=== PATIENT | female | born 1935 | race Caucasian/White ===

== ENCOUNTER 2017-04-30 09:50 | Inpatient (IN) | payer OTHER, BC ==
[~2017-04-30] VITALS: Ht 160 cm; Wt 53.3 kg
[2017-04-30 11:08] LABS: HEMATOCRIT 35.4 % (36.0-46.0); MCH 30.9 PG (29.0-34.0); MCHC 33.6 G/DL (30.0-36.0); MCV 91.9 FL (83-99); MEAN PLAT.VOLUME 9.4 uM^3 (9.5-12.4); PLATELET COUNT 338 K/uL (156-360); RBC DIS.WIDTH-CV 13.1 % (11.8-14.6); RBC DIS.WIDTH-SD 44.1 % (39-53); RED BLOOD COUNT 3.85 M/uL (3.80-5.20); WHITE BLOOD COUNT 6.1 K/uL (4.1-10.2)
[2017-04-30 11:14] LABS: PROTHROMBIN TIME 10.9 SEC (10.2-12.9)
[2017-04-30 11:18] LABS: CHLORIDE 102 mEq/L (99-109); POTASSIUM 4.4 mEq/L (3.7-5.4); SODIUM 141 mEq/L (136-147)
[2017-04-30 11:20] LABS: GLUCOSE 109 mg/dL (70-99)
[2017-04-30 11:21] LABS: ANION GAP 13 MEQ/L (2-14)
[2017-04-30 11:22] LABS: TOTAL BILIRUBIN 0.6 mg/dL (0.0-1.0)
[2017-04-30 11:23] LABS: ALKALINE PHOSPHATASE 82 IU/L (3-129)
[2017-04-30 11:24] LABS: GFR ESTIMATE (CALCULATED) > 59 mL/min/
[2017-04-30 11:25] LABS: PTT 32.8 SEC (25-37); UREA NITROGEN (BUN) 20 mg/dL (9-23)
[2017-04-30] MEDS ORDERED: MELOXICAM15 MG PO (17:21)
[2017-04-30] MEDS ORDERED: ZOLPIDEM TARTRA10 MG PO (17:22)
[2017-04-30] MEDS ORDERED: ESOMEPRAZOLE MA40 MG PO (17:23)
[2017-04-30] MEDS ORDERED: RESTASIS MULTI5.5 ML BOTH EYES (17:24)
[2017-04-30] MEDS ORDERED: HYDROXYCHLOROQ200 MG PO (17:25)
[2017-04-30] MEDS ORDERED: VALSARTAN-HCTZ1 EAC1 PO (17:26)
[2017-04-30] MEDS ORDERED: KETOCONAZOLE60 GM TP (17:26)
[2017-04-30] MEDS ORDERED: LO-DOSE ASPIRIN81 M2 PO (17:29)
[2017-04-30] MEDS ORDERED: OMEGA 3-6-9 11200 MG PO (17:31)
[2017-04-30] MEDS ORDERED: VITAMIN D-32000 UNI2 PO (17:32)
[2017-04-30] MEDS ORDERED: CENTRUM SILVER1 EAC4 PO (17:33)
[2017-04-30 21:25] VITALS: BP 147/70
[2017-04-30 23:48] VITALS: BP 149/66
[2017-05-01 03:47] VITALS: BP 120/57
[2017-05-01 06:22] LABS: HEMATOCRIT 33.5 % (36.0-46.0); MCH 31.5 PG (29.0-34.0); MCHC 33.7 G/DL (30.0-36.0); MCV 93.3 FL (83-99); MEAN PLAT.VOLUME 9.9 uM^3 (9.5-12.4); PLATELET COUNT 310 K/uL (156-360); RBC DIS.WIDTH-CV 13.3 % (11.8-14.6); RBC DIS.WIDTH-SD 45.6 % (39-53); RED BLOOD COUNT 3.59 M/uL (3.80-5.20); WHITE BLOOD COUNT 5.5 K/uL (4.1-10.2)
[2017-05-01 06:49] LABS: ANION GAP 9 MEQ/L (2-14); CHLORIDE 105 MEQ/L (99-109); GFR ESTIMATE (CALCULATED) > 59 mL/min/; GLUCOSE 105 mg/dL (70-99); SAMPLE HEMOLYSIS CHECK 0; SAMPLE ICTERIC CHECK 0; SAMPLE LIPEMIA CHECK 0; SODIUM 141 MEQ/L (136-147); UREA NITROGEN (BUN) 15 mg/dL (9-23)
[2017-05-01 08:25] VITALS: BP 141/65
[2017-05-01 12:25] VITALS: BP 142/62
[2017-05-01] MEDS ORDERED: LEVAQUIN750 MG PO (17:31)
== END 2017-05-01 17:57 | disposition home or self-care (01) | DRG 841 ==
LOC: EME 09:50 → EDOF 18:13 → ENRESERV 18:18 → 2EAST 21:17
PROVIDERS: Emergency Medicine; Hospitalist
DX: C85.91 Non-Hodgkin lymphoma, unspecified, lymph nodes of head, face, and neck (principal); J02.9 Acute pharyngitis, unspecified; R04.2 Hemoptysis; R13.10 Dysphagia, unspecified; I10 Essential (primary) hypertension; H61.23 Impacted cerumen, bilateral; K44.9 Diaphragmatic hernia without obstruction or gangrene; M19.90 Unspecified osteoarthritis, unspecified site; Z98.1 Arthrodesis status; Z79.82 Long term (current) use of aspirin
CPT/HCPCS: 70491; 71260; 80048; 80053; 85027; 85610; 85730; 99281; 99285; J1644; J7030

== ENCOUNTER → 2017-07-16 | Outpatient (CLI) | payer OTHER, BC ==
[~2017-07-16] MED LIST: AUGMENTIN500 MG PO; CENTRUM SILVER1 EAC4 PO; ESOMEPRAZOLE MA40 MG PO; HYDROXYCHLOROQ200 MG PO; KETOCONAZOLE60 GM TP; LEVAQUIN750 MG PO; LO-DOSE ASPIRIN81 M2 PO; MELOXICAM15 MG PO; OMEGA 3-6-9 11200 MG PO; RESTASIS MULTI5.5 ML BOTH EYES; VALSARTAN-HCTZ1 EAC1 PO; VITAMIN D-32000 UNI2 PO; ZOLPIDEM TARTRA10 MG PO
[2017-07-16 08:20] LABS: HEMATOCRIT 36.3 % (36.0-46.0); MCH 30.4 PG (29.0-34.0); MCHC 32.5 G/DL (30.0-36.0); MCV 93.6 FL (83-99); MEAN PLAT.VOLUME 9.2 uM^3 (9.5-12.4); PLATELET COUNT 340 K/uL (156-360); RBC DIS.WIDTH-CV 13.8 % (11.8-14.6); RBC DIS.WIDTH-SD 47.2 % (39-53); RED BLOOD COUNT 3.88 M/uL (3.80-5.20); WHITE BLOOD COUNT 5.3 K/uL (4.1-10.2)
[2017-07-16 08:26] LABS: PROTHROMBIN TIME 11.4 SEC (10.2-12.9)
[2017-07-16 08:29] LABS: PTT 33.5 SEC (25-37)
== END | disposition home or self-care (01) ==
LOC: OPR 07:52 → EDSTATUS 08:00 → OPR 08:00
PROVIDERS: Internal Medicine Hematology & Oncology
PROC: 07B13ZX Excision of Right Neck Lymphatic, Percutaneous Approach, Diagnostic (ICD-10-PCS; principal; 2017-07-16)
DX: C91.10 Chronic lymphocytic leukemia of B-cell type not having achieved remission (principal); R59.0 Localized enlarged lymph nodes
CPT/HCPCS: 77012; 85027; 85610; 85730; 85999; 88184 90; 88185 90; 88305

== ENCOUNTER 2017-08-25 12:47 | Day surgery (SDC) | payer OTHER, BC ==
[~2017-08-25] VITALS: Ht 160 cm; Wt 54.4 kg
[2017-08-25 13:18] VITALS: BP 137/74
[2017-08-25 13:43] LABS: ANION GAP 7 MEQ/L (2-14); CHLORIDE 101 MEQ/L (99-109); GFR ESTIMATE (CALCULATED) > 59 mL/min/; GLUCOSE 103 mg/dL (70-99); POTASSIUM 4.1 MEQ/L (3.7-5.4); SAMPLE HEMOLYSIS CHECK 0; SAMPLE ICTERIC CHECK 0; SAMPLE LIPEMIA CHECK 0; SODIUM 140 MEQ/L (136-147); UREA NITROGEN (BUN) 18 mg/dL (9-23)
[2017-08-25] MEDS ORDERED: NORCO 5/3251 TABLET PO (16:05)
[2017-08-25 16:27] VITALS: BP 158/73
[2017-08-25 16:58] VITALS: BP 161/74
== END 2017-08-25 17:04 | disposition home or self-care (01) ==
LOC: SDC 12:47
PROVIDERS: Surgery
PROC: 07B10ZX Excision of Right Neck Lymphatic, Open Approach, Diagnostic (ICD-10-PCS; principal; 2017-08-25)
DX: I88.9 Nonspecific lymphadenitis, unspecified (principal); Z80.6 Family history of leukemia; Z80.7 Family history of other malignant neoplasms of lymphoid, hematopoietic and related tissues; Z85.820 Personal history of malignant melanoma of skin; I10 Essential (primary) hypertension; K21.0 Gastro-esophageal reflux disease with esophagitis; Z79.82 Long term (current) use of aspirin
CPT/HCPCS: 80048; 88305; 93005; J0690; J2405; J3010; S0020